=== PATIENT | female | born 2000 | race Caucasian/White ===

== ENCOUNTER 2019-06-04 08:14 | Inpatient (IN) ==
--- NOTE | 2019-06-04 08:20 | OB/GYN History & Physical ---
Date of Encounter: 06/04/19 Time of Encounter: 08:18 Assessment and Plan (1) SROM (spontaneous rupture of membranes) Current visit: Yes Status: Acute History of prior section for large for gestational age and failure to progress. At this of this baby is larger than her prior baby. The patient and her partner. She declines trial of labor. This time she would like to proceed with a repeat section. Rupture of membrane was confirmed on vaginal examination. All risks benefits and indications and alternatives were discussed. At this time we plan to proceed with a repeat section. (2) with 39 completed weeks gestation Current visit: Yes Status: Acute History of Present Illness Chief complaint: SROM HPI: Ms. Farooq is a 19 year old 2 para 1 female who presents to labor and delivery at 39 weeks and 3 days gestation with complaints of a large gush of flu id this morning and continuous leaking. On examination she was found to have spontaneous rupture of membranes. She is having some minor contractions. She states her has been uncomplicated. She has no chronic medical conditions. She is not on any long-term medications. Her only prior surgery was a section. She has no fevers or chills. No bleeding. Her baby is active. No other medical complications during her . Past Med Surg Social Fam HX - Past Medical History Medical history: no medical history Psychiatric history: no psych history - Past Surgical History Surgical History: - Social History Smoking Status: Former smoker Smokeless Tobacco Status: No Alcohol use: none Drug use: none - Family History Brother Adopted: No Family Member Ethnicity: Non- Living Status: Still Living Hx Family Cardiac Disorders: No Hx Family Respiratory Disorders: Yes (asthma) Hx Family Cancer: No Hx Family GI Disorders: No Hx Family Endocrine Disorder: No Hx Family Neuromuscular Disorders: No Hx Family Neurologic Disorders: No Hx Family HEENT Disorders: No Hx Family Autoimmune Disorders: No Obstetrical History - Pregnancies : 2 Para: 1 Term: 1 - History/Complications History/Complications: denies. Prior section was for failure to progress and large for gestational age fetus. She declines trial of . She states this baby is larger. Medications and Allergies Caplet 1 tab PO 01/28/19 [History] Allergy/AdvReac Type Severity Reaction Status Date / Time latex Allergy Rash Verified 01/28/19 01:17 Review of System OB All systems PM: reviewed and no additional remarkable complaints except as stated Exam - Constitutional Constitutional: well developed, well nourished, no acute distress - HEENT HEENT: Normocephaly - Neck Neck exam: full ROM - Lungs Respiratory exam: CTAB - Cardiovascular Cardiovascular exam: RRR - Abdomen Abdomen: Present: bowel sounds normal, non tender - Extremities Extremities exam: full ROM - Vulva Vulva: bilateral: normal - Vagina Vagina: Present: normal moisture (large amount of clear amniotic fluid present) - Cervix Cervix: Present: discharge (visually closed) - Uterus Uterus exam: Present: normal size (gravid term) Results All other labs normal.
[2019-06-04] MEDS ORDERED: Oxytocin 20 units/ LR 1000 mL 20 UNIT/1,000 ML BAG IVC ONE (08:25)
[2019-06-04] MEDS ORDERED: Famotidine 20 MG/2 ML VIAL IVP ONE (08:25)
[2019-06-04] MEDS ORDERED: Metoclopramide 10 MG/2 ML VIAL IVP ONE (08:25)
[2019-06-04] MEDS ORDERED: CeFAZolin Premix DUPLEX 2,000 MG/50 ML BAG IVPB ONE (08:25)
[2019-06-04] MEDS ORDERED: Ringers Solution, Lactated 1,000 ML IVC ONE (08:25)
[2019-06-04] MEDS ORDERED: Naloxone 0.4 MG/ML INJ IVP PRN (08:28)
[2019-06-04] MEDS ORDERED: Oxytocin 20 units/ LR 1000 mL 20 UNIT/1,000 ML BAG IVC SCH ×2 (08:30→13:27)
[2019-06-04] MEDS ORDERED: Ringers Solution, Lactated 1,000 ML IVC SCH (08:30)
[2019-06-04] MEDS ORDERED: *HR* Oxytocin 10 UNIT/ML VIAL IM ONE ×2 (08:35→10:18)
[2019-06-04] MEDS ORDERED: EPHEDrine 50 MG/ML VIAL ONE (08:35)
[2019-06-04] MEDS ORDERED: *HR* FentaNYL (PF) 100 MCG/2 ML VIAL ONE (08:35)
[2019-06-04] MEDS ORDERED: *HR* Morphine Sulfate/PF 10 MG/10 ML AMPUL ONE (08:35)
[2019-06-04] MEDS ORDERED: Water for inj. (sterile) 10 ML ONE (08:35)
[2019-06-04] MEDS ORDERED: *HR* Phenylephrine 10 MG/ML VIAL ONE (08:36)
[2019-06-04] MEDS ORDERED: Bupivacaine/PF 0.75% in Dex 2 ML AMPUL INFILT ONE (08:41)
[2019-06-04] MEDS ORDERED: Lidocaine -MPF 2% 5 ML VIAL ONE (08:41)
--- NOTE | 2019-06-04 09:07 | Anesthesia Evaluation PreOp ---
Date of Encounter: 06/04/19 Time of Encounter: 08:40 - Past History Planned Operation: repeat c section, tubal Cardiac History: Denies any Significant Hx Pulmonary History: Former smoker (quit [address] REPORTER History: Denies Any Significant HX Other Medical History: Denies Any Significant HX Anesthesia History: No Prior Anesthetic Complications, Past Anesthesia (previous c section with epidural, no problems. Never had GA. No FHAP.) : Yes Alcohol Use: none Drug use: none Medications and Allergies Caplet 1 tab PO DAILY 01/28/19 [History] Allergy/AdvReac Type Severity Reaction Status Date / Time latex Allergy Rash Verified 01/28/19 01:17 - Meds/Allergy Pre-op Review Medications Reviewed: Yes Allergies Reviewed: Yes Beta Blockers on Current Med List: No Anesthesia Exam VS and FHTs stable and WNL. Height: 1.55m Weight: 74kg NPO (# of Hours): 5 toast @ 0300 Pain Scale: 4 Pain Scale Used: Numeric (1 - 10) - HEENT Pupil (Motor): Pupils equal, EOMI Mallampati: II Teeth: Normal Oral Opening: Greater than 3 - COURT REPORTER LOC: Oriented COURT REPORTER Motor: Normal RUE, Normal LUE, Normal RLE, Normal LLE, Normal Face COURT REPORTER Sensory: Normal: RUE, LUE, RLE, LLE, Face - Cardiac Rhythm: Regular - Pulmonary Breath Sounds: bilateral Clear Respiratory Effort: Symmetrical Anesthesia Assess/Plan ASA Score: 2 Level of consciousness: Cooperative, Oriented, Tranquil Anesthetic Plan: Spinal Monitoring Plan: Standard Monitors Recovery Plan: PACU
[2019-06-04 09:13] LABS: Basophils % 0.3 %; Eosinophils # 0.1 K/mcL (0.0-0.6); Eosinophils % 0.7 %; Hematocrit 35.5 % (35.3-44.9); Immature Granulocytes % 0.6 % (0-4); Lymphocytes # 2.3 K/mcL (0.6-4.6); Mean Corpuscular HGB Conc 33.8 g/dL (31.6-35.5); Mean Corpuscular Hemoglobin 31.7 pg (28.0-33.3); Mean Corpuscular Volume 93.9 fL (83.0-100.0); Mean Platelet Volume 10.2 fL (9.4-12.4); Monocytes # 0.7 K/mcL (0.0-1.3); Monocytes % 7.5 %; Neutrophils # 5.7 K/mcL (1.6-8.9); Platelet Count 178 K/mcL (140-400); Red Blood Count 3.78 M/mcL (3.82-4.97); Red Cell Distribution Width 12.4 % (11.5-14.5); Segmented Neutrophils % 64.9 %; White Blood Count 8.8 K/mcL (4.3-11.1)
[2019-06-04] MEDS ORDERED: Ondansetron 4 MG/2 ML VIAL IVP PRN ×2 (09:42→13:27)
[2019-06-04] MEDS ORDERED: Ibuprofen 400 MG TABLET PO PRN (09:42)
[2019-06-04] MEDS ORDERED: Morphine Sulfate 2 MG/ML SYRINGE IVP PRN (09:42)
[2019-06-04 09:51] LABS: Amphetamine Screen,Urine Negative ng/mL (Cutoff=1000); Barbiturate Screen,Urine Negative ng/mL (Cutoff=200); Benzodiazepines Screen,Urine Negative ng/mL (Cutoff=200); Cannabinoid Screen,Urine Negative ng/mL (Cutoff = 50); Cocaine Screen,Urine Negative ng/mL (Cutoff= 300); Opiate Screen,Urine Negative ng/mL (Cutoff=300); Phencyclidine Screen,Urine Negative ng/mL (Cutoff=25)
[2019-06-04] MEDS ORDERED: Ringers Solution, Lactated 1,000 ML ONE (10:18)
--- NOTE | 2019-06-04 10:35 | OB/GYN Procedure Note ---
Section - Date of procedure: 06/04/19 Preop diagnosis: desires repeat Post-op diagnosis: same Procedure: repeat low transverse Surgeon: Ruchi Montiel Quantitated Blood Loss: 400 Was there an laboratory assistant present: Cesilia Radar Mechanic: Claudine Galaviz Anesthesia Type: Spinal section complications: none Disposition: Post floor (none) - (s) Infant A Delivery Date: 06/04/19 Infant Delivery Time: 10:03 Presentation: vertex Position: OP Route of delivery: other (repeat ltcs) Gender: Male Viability: Viable Pounds: 7 Ounces: 15 Gram Weight: 3610 kg at 1 minute: 9 at 5 minutes: 9 Shoulder Dystocia: not encountered Placenta: partial extraction - Narrative Narrative: Primary diagnosis term , prior section, spontaneous rupture of membranes Postoperative diagnosis same Procedure repeat low transverse section and a bilateral tubal ligation Surgeon is Dr. Montiel Anesthesia is spinal Blood loss 400 mL Complications none Findings are normal uterus and adnexa, clear fluid, viable male infant Apgars 9 and 9 Patient was taken to the operating room and after adequate spinal anesthesia was assured she is prepped and draped in the usual sterile fashion. A Pfannenstiel incision was created and taken down through the subcutaneous fat and fascia to the rectus muscles. Rectus muscles were divided in the midline. The peritoneal cavity is entered superiorly without consequence to bowel or bladder. Bladder flap was created and the uterus was entered in a low transverse fashion. Upon entry into uterus a viable male infant was atraumatically delivered without difficulty. Cord was doubly clamped and cut and the was handed to our nurses in attendance. Apgars were 9 and 9 at one and 5 minutes respectively. All placental site and this was cleaned from the uterus. The uterus was closed with 2 lengths of Vicryl in a running interlock fashion. She has a small amount of bleeding in the midportion of the incision with a recite placental sinus pres ent. Interrupted sutures were placed and hemostasis was assured. The fallopian tubes were then identified by the ear fimbriated end. They were elevated in the midline. They were doubly suture ligated and transected. We had no complications with the tubal ligation. The uterus was then replaced within the abdominal cavity. Copious irrigation was performed. Surgical sites were inspected. Hemostasis was assured. The fascia was closed with 1 running Vicryl in a running fashion. The skin was closed with talia. At the end of procedure all sponge lap and needle instrument counts were correct 2. Baby was doing very well in the father's arms. Mom was taken to the postanesthesia care and in stable condition.. No intraoperative complications.
[2019-06-04] MEDS ORDERED: Acetaminophen IV 1,000 MG/100 ML INFUS..BTL IVPB SCH (12:00)
[2019-06-04] MEDS ORDERED: Sennosides 8.6 MG TABLET PO PRN (13:27)
[2019-06-04] MEDS ORDERED: Metoclopramide 10 MG/2 ML VIAL IVP PRN (13:27)
[2019-06-04] MEDS ORDERED: Rho Immune Globulin 1,500 UNIT SYRINGE IM ONE (13:27)
[2019-06-04] MEDS ORDERED: Simethicone 80 MG TAB.CHEW PO PRN (13:27)
[2019-06-04] MEDS ORDERED: *HR* Nalbuphine 10 MG/ML AMPUL IV PRN (13:31)
[2019-06-04] MEDS: *HR* OxyCODONE/APAP 5/325 TABLET PO PRN ×3 (14:06→22:53)
[2019-06-04] MEDS: ceFAZolin 1,000 MG in Water for inj. (sterile) 10 ML IVP SCH ×2 (15:13→23:52)
--- NOTE | 2019-06-04 18:13 | Anesthesia Evaluation Post Op ---
Date of Encounter: 06/04/19 Time of Encounter: 11:55 - Vital Signs Vital Signs: VSS throughout pacu stay. - Lungs Lungs: Clear Ascult./Percussion - Airway Airway: Non-obstructed - Cardiovascular Regular Rate - Mental Status Mental Status: Alert & Oriented, Answers Appropriately - Pain Pain Scale: 4 Pain Scale used: Numeric (1 - 10) - Nausea Vomiting Nausea Vomiting: Not Present - Hydration Hydration: Ice chips, Johnston catheter - Discharge PostOp Status: Transfer Patient to floor
[2019-06-04] MEDS: Ibuprofen 600 MG TABLET PO PRN (20:03)
[2019-06-05] MEDS: Ibuprofen 600 MG TABLET PO PRN ×3 (04:29→17:59)
[2019-06-05] MEDS: *HR* OxyCODONE/APAP 5/325 TABLET PO PRN ×3 (04:30→15:08)
[2019-06-05 04:49] LABS: Basophils % 0.2 %; Eosinophils # 0.1 K/mcL (0.0-0.6); Eosinophils % 0.6 %; Hematocrit 28.8 % (35.3-44.9); Immature Granulocytes % 0.3 % (0-4); Lymphocytes # 1.2 K/mcL (0.6-4.6); Mean Corpuscular HGB Conc 34.4 g/dL (31.6-35.5); Mean Corpuscular Hemoglobin 31.8 pg (28.0-33.3); Mean Corpuscular Volume 92.6 fL (83.0-100.0); Mean Platelet Volume 10.2 fL (9.4-12.4); Monocytes # 0.7 K/mcL (0.0-1.3); Neutrophils # 8.2 K/mcL (1.6-8.9); Platelet Count 112 K/mcL (140-400); Red Blood Count 3.11 M/mcL (3.82-4.97); Red Cell Distribution Width 12.4 % (11.5-14.5); Segmented Neutrophils % 79.9 %; White Blood Count 10.2 K/mcL (4.3-11.1)
[2019-06-05 04:56] LABS: Hemoglobin 9.9 g/dL (11.5-15.4)
[2019-06-05 08:04] VITALS: BP 108/75
[2019-06-05] MEDS: ceFAZolin 1,000 MG in Water for inj. (sterile) 10 ML IVP SCH (08:05)
--- NOTE | 2019-06-05 08:10 | OB/GYN Progress Note ---
Date of Encounter: 06/05/19 Time of Encounter: 08:05 - Assessment and Plan (1) Status post delivery Current Visit: Yes Status: Acute Patient meeting day one milestones. Pain well-controlled with prescribed medications. Voiding without difficulty, tolerating regular diet, bleeding light. No bowel movement yet. Anticipate discharge tomorrow (2) Tubal ligation status Current Visit: Yes Status: Acute Completed at time of (3) Acute blood loss anemia Current Visit: Yes Status: Acute Continue daily iron. Patient asymptomatic Subjective - Subjective Principal diagnosis: Status post Interval history: Date of procedure: 06/04/19 Preop diagnosis: desires repeat Post-op diagnosis: same Procedure: repeat low transverse Surgeon: Ruchi Ribera Blood Loss: 400 Was there an news assistant present: Cesilia Er Physician: Claudine Galaviz Anesthesia Type: Spinal section complications: none Disposition: Post floor (none) - Infant (s) A Delivery Date: 06/04/19 Infant Delivery Time: 10:03 Presentation: vertex Position: OP Route of delivery: other (repeat ltcs) Gender: Male Viability: Viable Pounds: 7 Ounces: 15 Gram Weight: 3610 kg at 1 minute: 9 at 5 minutes: 9 Shoulder Dystocia: not encountered Placenta: partial extraction - Narrative Narrative: Primary diagnosis term , prior section, spontaneous rupture of membranes Postoperative diagnosis same Procedure repeat low transverse section and a bilateral tubal ligation Surgeon is Dr. Montiel Anesthesia is spinal Blood loss 400 mL Complications none Findings are normal uterus and adnexa, clear fluid, viable male Apgars 9 and 9 Patient was taken to the operating room and after adequate spinal anesthesia was assured she is prepped and draped in the usual sterile fashion. A Pfannenstiel incision was created and taken down through the subcutaneous fat and fascia to the rectus muscles. Rectus muscles were divided in the midline. The peritoneal cavity is entered superiorly without consequence to bowel or bladder. Bladder flap was created and the uterus was entered in a low transverse fashion. Upon entry into uterus a viable male was atraumatically delivered without difficulty. Cord was doubly clamped and cut and the infant was handed to our nurses in attendance. Apgars were 9 and 9 at one and 5 minutes respectively. All placental site and this was cleaned from the uterus. The uterus was closed with 2 lengths of Vicryl in a running interlock fashion. She has a small amount of bleeding in the midportion of the incision with a recite placental sinus present. Interrupted sutures were placed and hemostasis was assured. The fallopian tubes were then identified by the ear fimbriated end. They were elevated in the midline. They were doubly suture ligated and transected. We had no complications with the tubal ligation. The uterus was then replaced within the abdominal cavity. Copious irrigation was performed. Surgical sites were inspected. Hemostasis was assured. The fascia was closed with 1 running Vicryl in a running fashion. The skin was closed with talia. At the end of procedure all sponge lap and needle instrument counts were correct 2. Baby was doing very well in the father's arms. Mom was taken to the postanesthesia care and in stable condition.. No intraoperative complications. Patient reports: appetite normal, voiding normally, pain well controlled, ambulating normally : doing well, bottle feeding Objective - Vital Signs Latest vital signs: Vital Signs Temp Pulse Resp BP Pulse Ox 06/05/19 08:04 98.2 F 97 16 108/75 98 06/05/19 04:30 97.7 F 94 16 111/75 98 06/04/19 23:50 98.2 F 88 16 125/77 97 06/04/19 20:00 98.2 F 95 14 111/73 96 06/04/19 15:45 97.6 F 78 16 111/76 06/04/19 14:45 97.5 F L 75 14 110/74 99 06/04/19 13:49 97.8 F 74 16 106/68 99 06/04/19 13:20 97.8 F 73 16 124/76 99 06/04/19 12:45 97.9 F 88 16 110/79 98 Intake and Output 06/04/19 06/05/19 06/05/19 23:59 07:59 15:59 Intake Total 300 / 310 Output Total 950 / 950 1249 Balance -650 / -640 -1249 - Intake: Oral 300 / 300 Output: Urine 100 / 100 1249 Catheter 850 / 850 Other: # Voids 1 Weight 71.849 kg Patient Weight 06/05/19 23:59 Weight 71.849 kg - Exam Lungs: bilateral: normal Chest: Normal S1, Normal S2 Extremities: Present: normal Abdomen: Present: normal appearance, soft. Absent: distention, tenderness Incision: Present: dry (surgical dressing), intact (surgical dressing) Uterus: Present: normal, firm Fundal Height: 1 (U/1) - Labs Labs: Laboratory Results - last 24 hr 06/04/19 06/04/19 06/05/19 08:30 08:30 04:21 WBC 8.8 10.2 RBC 3.78 L 3.11 L Hgb 12.0 9.9 L D Hct 35.5 28.8 L MCV 93.9 92.6 MCH 31.7 31.8 MCHC 33.8 34.4 RDW 12.4 12.4 Plt Count 178 112 L MPV 10.2 10.2 Immature Gran % 0.6 0.3 Seg Neutrophils % 64.9 79.9 Lymphocytes % 26.0 12.0 Monocytes % 7.5 7.0 Eosinophils % 0.7 0.6 Basophils % 0.3 0.2 Neutrophils # 5.7 8.2 Lymphocytes # 2.3 1.2 Monocytes # 0.7 0.7 Eosinophils # 0.1 0.1 Basophils # 0.0 0.0 Urine Opiates Screen Negative Ur Buprenorphine Scrn Negative Ur Barbiturates Screen Negative Ur Phencyclidine Scrn Negative Ur Amphetamines Screen Negative U Benzodiazepines Scrn Negative Urine Cocaine Screen Negative U Marijuana (THC) Screen Negative Ur Drug Screen Interp See Below
[2019-06-05] MEDS ORDERED: Prenatal Vit/FA 1 EACH TABLET PO SCH (09:00)
[2019-06-05] MEDS ORDERED: NON-FORMULARY MEDICATION 1 EACH EACH (Prenatal Caplet 1 TAB) PO SCH (09:00)
--- NOTE | 2019-06-05 16:54 | Discharge Summary ---
Date of Encounter: 06/05/19 Time of Encounter: 16:50 - Discharge Diagnosis (1) Status post delivery Priority: Primary Status: Acute Comments: Patient requesting to be discharged today. See note from earlier today. (2) Tubal ligation status Priority: Secondary Status: Acute (3) Acute blood loss anemia Priority: Secondary Status: Acute - Discharge Medications Prescriptions: New Ferrous Sulfate 325 mg PO DAILY #30 tablet Ibuprofen [Motrin] 600 mg PO Q6HR PRN #60 tablet PRN Reason: Cramping OxyCODONE/APAP 5/325 [Percocet 5/325 MG] 1 each PO Q6H PRN 7 Days #28 tablet PRN Reason: Moderate pain 4-6 Docusate [Colace] 100 mg PO BID #60 capsule Simethicone [Gas-X] 80 mg PO TID PRN tab.chew PRN Reason: Dyspepsia Continued Caplet 1 tab PO DAILY Home Medications: Caplet 1 tab PO DAILY 01/28/19 [History] Docusate [Colace] 100 mg PO BID #60 capsule 06/05/19 [Rx] Ferrous Sulfate 325 mg PO DAILY #30 tablet 06/05/19 [Rx] Ibuprofen [Motrin] 600 mg PO Q6HR PRN #60 tablet 06/05/19 [Rx] OxyCODONE/APAP 5/325 [Percocet 5/325 MG] 1 each PO Q6H PRN 7 Days #28 tablet 06/05/19 [Rx] Simethicone [Gas-X] 80 mg PO TID PRN tab.chew 06/05/19 [Rx] Allergies/Adverse Reactions: Allergy/AdvReac Type Severity Reaction Status Date / Time latex Allergy Rash Verified 01/28/19 01:17 Data Procedures and tests throughout hospitalization: Laboratory Tests 06/04/19 06/04/19 06/05/19 08:30 08:30 04:21 WBC 8.8 10.2 RBC 3.78 L 3.11 L Hgb 12.0 9.9 L D Hct 35.5 28.8 L MCV 93.9 92.6 MCH 31.7 31.8 MCHC 33.8 34.4 RDW 12.4 12.4 Plt Count 178 112 L MPV 10.2 10.2 Immature Gran % 0.6 0.3 Seg Neutrophils % 64.9 79.9 Lymphocytes % 26.0 12.0 Monocytes % 7.5 7.0 Eosinophils % 0.7 0.6 Basophils % 0.3 0.2 Neutrophils # 5.7 8.2 Lymphocytes # 2.3 1.2 Monocytes # 0.7 0.7 Eosinophils # 0.1 0.1 Basophils # 0.0 0.0 Urine Opiates Screen Negative Ur Buprenorphine Scrn Negative Ur Barbiturates Screen Negative Ur Phencyclidine Scrn Negative Ur Amphetamines Screen Negative U Benzodiazepines Scrn Negative Urine Cocaine Screen Negative U Marijuana (THC) Screen Negative Ur Drug Screen Interp See Below Labs on day of discharge: Labs from last 24 hours 06/05/19 04:21 WBC 10.2 RBC 3.11 L Hgb 9.9 L D Hct 28.8 L MCV 92.6 MCH 31.8 MCHC 34.4 RDW 12.4 Plt Count 112 L MPV 10.2 Immature Gran % 0.3 Seg Neutrophils % 79.9 Lymphocytes % 12.0 Monocytes % 7.0 Eosinophils % 0.6 Basophils % 0.2 Neutrophils # 8.2 Lymphocytes # 1.2 Monocytes # 0.7 Eosinophils # 0.1 Basophils # 0.0 Date of admission: 06/04/19 08:14 Primary care physician: PCP NONE Discharging clinician: Berna Knowles Anticipated date of discharge: 06/05/19 - Patient Status Disposition: Home, Self-Care Condition: Good Functional capacity at discharge: independent ambulation Overall status at discharge: patient is progressing back to baseline - Discharge Instructions Follow Up With: NONE,PCP [Primary Care Provider] - - Diet and Activity Activity: increase activity as tolerated, resume usual activities as tolerated Diet: regular diet Hospital Course Reason for admission: rupture of membranes Delivery: section Episiotomy: none Laceration: none Other procedures: none complications: spinal headache Discharge diagnosis: IUP at term delivered [place] baby: male Hospital course: Date of procedure: 06/04/19 Preop diagnosis: desires repeat Post-op diagnosis: same Procedure: repeat low transverse Surgeon: Ruchi Ribera Blood Loss: 400 Was there an printing bindery assistant present: No Stem Dryer Maintainer: Claudine Galaviz Anesthesia Type: Spinal section complications: none Disposition: Post floor (none) - (s) Infant A Infant Delivery Date: 06/04/19 Infant Delivery Time: 10:03 Presentation: vertex Position: OP Route of delivery: other (repeat ltcs) Gender: Male Viability: Viable Pounds: 7 Ounces: 15 Gram Weight: 3610 kg at 1 minute: 9 at 5 minutes: 9 Shoulder Dystocia: not encountered Placenta: partial extraction - Narrative Narrative: Primary diagnosis term , prior section, spontaneous rupture of membranes Postoperative diagnosis same Procedure repeat low transverse section and a bilateral tubal ligation Surgeon is Dr. Montiel Anesthesia is spinal Blood loss 400 mL Complications none Findings are normal uterus and adnexa, clear fluid, viable male infant Apgars 9 and 9 Patient was taken to the operating room and after adequate spinal anesthesia was assured she is prepped and draped in the usual sterile fashion. A Pfannenstiel incision was created and taken down through the subcutaneous fat and fascia to the rectus muscles. Rectus muscles were divided in the midline. The peritoneal cavity is entered superiorly without consequence to bowel or bladder. Bladder flap was created and the uterus was entered in a low transverse fashion. Upon entry into uterus a viable male was atraumatically delivered without difficulty. Cord was doubly clamped and cut and the was handed to our nurses in attendance. Apgars were 9 and 9 at one and 5 minutes respectively. All placental site and this was cleaned from the uterus. The uterus was closed with 2 lengths of Vicryl in a running interlock fashion. She has a small amount of bleeding in the midportion of the incision with a recite placental sinus present. Interrupted sutures were placed and hemostasis was assured. The fallopian tubes were then identified by the ear fimbriated end. They were elevated in the midline. They were doubly suture ligated and transected. We had no complications with the tubal ligation. The uterus was then replaced within the abdominal cavity. Copious irrigation was performed. Surgical sites were inspected. Hemostasis was assured. The fascia was closed with 1 running Vicryl in a running fashion. The skin was closed with talia. At the end of procedure all sponge lap and needle instrument counts were correct 2. Baby was doing very well in the father's arms. Mom was taken to the postanesthesia care and in stable condition.. No intraoperative complications. Time Attestation: Total time spent providing and/or coordinating discharge services: Time Spent: Less than 30 minutes - VTE Reasons for not Prescribing Prophylaxis: Treatment not Indicated - Low risk for VTE Documentation of Mechanical Device: Intermittent pneumatic compression device Exam - Constitutional Vitals: Temp Pulse Resp BP Pulse Ox 98.2 F 97 16 108/75 98 06/05/19 08:04 06/05/19 08:04 06/05/19 08:04 06/05/19 08:04 06/05/19 08:04 General appearance IM: A&O X 3, pleasant, no acute distress, answers questions appropriately - Respiratory Respiratory exam: Present: CTAB. Absent: respiratory distress - Cardiovascular Cardiovascular exam IM: Present: RRR, +S1, +S2. Absent: irregular rhythm - GI/Abdominal GI/Abdominal exam IM: normal bowel sounds, soft Incision: normal, dry, intact - Rectal Rectal exam: deferred - External exam: normal external exam Uterine Tone: Firm Uterus Position: 1 Finger Below Umbilicus, Midline - Extremities Exam Extremities exam IM: Present: full ROM, normal capillary refill, normal inspection. Absent: calf tenderness - Neurological Exam Neurological exam: alert, normal gait, oriented X3
== END 2019-06-05 18:50 | disposition home or self-care (01) | DRG 540 ==
LOC: 1NENULAB 08:14 → 1NENUOBS 12:57
PROVIDERS: ADMIT Obstetrics & Gynecology; ATTEND Obstetrics & Gynecology